=== PATIENT | female | born 1995 | race Caucasian/White ===

== ENCOUNTER 2016-11-24 13:44 | Emergency (ER) | payer MEDICAID, OTHER ==
[~2016-11-24] VITALS: Ht 154.9 cm; Wt 54.4 kg
[~2016-11-24 13:44] MED LIST: PRENATAL VITAMI1 T10 PO; TYLENOL ES500 MG PO
[2016-11-24 13:54] VITALS: BP 134/84
--- NOTE | 2016-11-24 14:05 | NUR ---
PATIENT PRESENTS TO ED WITH C/O SHOULDER, NECK AND BACK PAIN X 3 MONTHS, PT. STATES ITS WORSE WHEN WALKING AND BREATHING DEEP; DENIES N/V/D; SKIN IS PINK/WARM/DRY; AAOX4 WITH EVEN AND STEADY GAIT; LUNGS CLEAR BL; HR EVEN AND REGULAR; PT DENIES ANY FEVER, CP, SOB, OR COUGH AT THIS TIME; PATIENT STATES PAIN OF 7/10 AT THIS TIME; VSS; PATIENT POSITIONED FOR COMFORT; HOB ELEVATED; BEDRAILS UP X2; BED DOWN. ER MD MADE AWARE OF PT STATUS.
[2016-11-24] MEDS ORDERED: KETOROLAC 60 MG/2 ML VIAL IM ONE (14:10)
[2016-11-24] MEDS ORDERED: LORazepam 1 MG TAB PO ONE (14:10)
--- NOTE | 2016-11-24 14:15 | NUR ---
AAO PT TAKEN TO CT VIA WHEEL CHAIR BY RECOVERY COLLECTOR
--- NOTE | 2016-11-24 14:45 | NUR ---
Patient discharged with v/s stable. Written and verbal after care instructions given and explained. Patient alert, oriented and verbalized understanding of instructions. Ambulatory with steady gait. All questions addressed prior to discharge. ID band removed. Patient advised to follow up with PMD. Rx of FLEXERIL, MOTRIN, TRAMADOL given. Patient educated on indication of medication including possible reaction and side effects. Opportunity to ask questions provided and answered.
[2016-11-24 14:50] VITALS: BP 128/75
== END 2016-11-24 14:45 | disposition home or self-care (01) ==
LOC: MED 13:55
DX: M62.830 Muscle spasm of back (principal); M94.0 Chondrocostal junction syndrome [Tietze]
CPT/HCPCS: 71020; 96372; 99284; J1885

== ENCOUNTER 2017-11-11 11:00 | Inpatient (IN) | payer MEDICAID ==
[~2017-11-11] VITALS: Ht 165.1 cm; Wt 53.5 kg
[~2017-11-11 11:00] MED LIST changes: +ACET-6134 PO; -PRENATAL VITAMI1 T10 PO; -TYLENOL ES500 MG PO
[2017-11-11 11:20] VITALS: BP 119/58
--- NOTE | 2017-11-11 11:23 | NUR ---
Patient ambulated to bed 11. RN evaluating patient at bedside.
--- NOTE | 2017-11-11 11:30 | NUR ---
PATIENT PRESENTS TO ED WITH LOWER ABD PAIN AND URINARY RETENTION SINCE 0800; PT STATES "I FEEL LIKE I HAVE TO GO BUT I CAN'T" HX DENIES; DENIES N/V/D; SKIN IS PINK/WARM/DRY; AAOX4 WITH EVEN AND STEADY GAIT; LUNGS CLEAR BL; HR EVEN AND REGULAR; PT DENIES ANY FEVER, CP, SOB, OR COUGH AT THIS TIME; PATIENT STATES PAIN OF 10/10 AT THIS TIME; VSS; PATIENT POSITIONED FOR COMFORT; HOB ELEVATED; BEDRAILS UP X2; BED DOWN. ER MD MADE AWARE OF PT STATUS.
[2017-11-11] MEDS ORDERED: MORPHINE SULFATE 4 MG/ML SYR IVP ONE (11:35)
[2017-11-11] MEDS ORDERED: ONDANSETRON 4 MG/2 ML VIAL IVP ONE (11:35)
--- NOTE | 2017-11-11 12:10 | NUR ---
STRAIGHT CATH ATTEMPTED X2 BY [facility] INSTRUCTOR/STUDENTS; UNABLE TO COLLECT URINE, DR AREVALO NOTIFIED
[2017-11-11 12:43] LABS: BASOPHILS # (AUTO) 0.1 K/uL (0.00-0.22); EOSINOPHILS % (AUTO) 8.2 % (0.0-4.0); HEMATOCRIT 40.5 % (36-48); HEMOGLOBIN 13.4 g/dL (12.0-16.0); LYMPHOCYTES # (AUTO) 1.3 K/uL (2.5-16.5); LYMPHOCYTES % (AUTO) 11.2 % (20.5-51.1); MEAN CORPUSCULAR HEMOGLOBIN 26 pg (27-31); MEAN CORPUSCULAR HGB CONC 33 g/dL (33-37); MEAN CORPUSCULAR VOLUME 78 fL (80-94); MONOCYTES # (AUTO) 0.9 K/uL (0.8-1.0); MONOCYTES % (AUTO) 7.2 % (1.7-9.3); NEUTROPHILS # (AUTO) 8.7 K/uL (1.8-7.7); NEUTROPHILS % (AUTO) 72.4 % (42.2-75.2); PLATELET COUNT (AUTO) 139 K/uL (140-450); RED CELL DISTRIBUTION WIDTH 16.8 % (11.6-13.7)
[2017-11-11] MEDS ORDERED: NACL 0.9% 1,000 ML IV ONE (12:55)
[2017-11-11 13:00] LABS: ANION GAP 15.7 (8-16); CREATININE 0.8 mg/dL (0.6-1.3); POTASSIUM 3.7 mmol/L (3.5-5.1)
[2017-11-11 13:09] LABS: TOTAL BILIRUBIN 0.6 mg/dL (0.0-1.0)
--- NOTE | 2017-11-11 13:29 | NUR ---
PT TAKEN TO CT
--- NOTE | 2017-11-11 13:30 | NUR ---
PT TAKEN OFF THE UNIT VIA GURNEY FOR CT SCAN BY SOLE FILLER GABE
--- NOTE | 2017-11-11 14:06 | NUR ---
PT RETURNED FROM CT
--- NOTE | 2017-11-11 14:15 | NUR ---
PT AMBULATES TO THE RESTROOM FOR URINE SAMPLE SEND TO THE LAB
[2017-11-11 15:11] LABS: PROTHROMBIN TIME 11.1 secs (10.8-13.4)
[2017-11-11 15:33] LABS: APPEARANCE,URINE SL CLOUDY (CLEAR); BILIRUBIN,URINE NEGATIVE (NEGATIVE); BLOOD, URINE 3+ (NEGATIVE); COLOR,URINE YELLOW (YELLOW); LEUKOCYTE ESTERASE ,URINE 3+ (NEGATIVE); NITRITE, URINE NEGATIVE (NEGATIVE); UGLUCOSE NEGATIVE (NEGATIVE)
[2017-11-11] MEDS ORDERED: LORazepam 0.5 MG TAB PO PRN (15:35)
[2017-11-11 15:39] LABS: RBC,URINE 20-50 /HPF (0-5); WBC,URINE 60-80 /HPF (0-5)
[2017-11-11] MEDS ORDERED: cefTRIAXone 1,000 MG VIAL ONE (15:46)
[2017-11-11] MEDS ORDERED: MORPHINE SULFATE 2 MG/ML SYR IVP PRN (15:50)
[2017-11-11] MEDS ORDERED: ONDANSETRON 4 MG/2 ML VIAL IM/IVP PRN (15:50)
[2017-11-11] MEDS ORDERED: DOCUSATE SODIUM 100 MG GELCAP PO PRN (15:50)
[2017-11-11] MEDS ORDERED: ACETAMINOPHEN 325 MG TAB PO PRN (15:50)
[2017-11-11 16:00] VITALS: BP 106/59
--- NOTE | 2017-11-11 16:28 | NUR ---
Patient will be admitted to care of DR ESPOSITO. Admited to M/S. Will go to room 104A. Belongings list completed. Report to AUTUMN WALKER.
--- NOTE | 2017-11-11 16:30 | NUR ---
PT ADMITTED TO UNIT. ARRIVED VIA GURNEY ACCOMPANIED BY LINDA LEYVA AND CARLOS. BEDSIDE REPORT GIVEN BY RN. PT AMBULATED TO BED WITH STEADY GAIT. PT IS AAOX4. INTRODUCED SELF AND UPDATED BOARD. IV TO L AC 22G. SITE INTACT. SKIN WARM AND DRY. NO COUGH. LUNG SOUND CLEAR. VS: BP 106/59, HR 83, RR 18, O2 SAT 100% ON RA. PT STATED PAIN 2/10 ON PELVIC AREA. PAIN IS TOLERABLE AND REFUSES PAIN MEDICATION NOW. MRSA SWAB DONE, APPLIED BROWN SOCKS. BED IN LOW POSITION, CALL LIGHT WITHIN REACH. WILL CONTINUE TO MONITOR.
[2017-11-11] MEDS: NACL 0.9% 1,000 ML IV SCH (16:59)
[2017-11-11 17:09] LABS: BARBITURATE, URINE NEG. ng/ml (NEG <=200); BENZODIAZEPINE, URINE NEG. ng/mL (NEG <=200); CANNABINOID, URINE NEG. ng/mL (NEG <=50); COCAINE, URINE NEG. ng/mL (NEG <=300); OPIATE, URINE POS. ng/mL (NEG <=2000); PHENCYCLIDINE SCREEN,URINE NEG. ng/mL (NEG <=25)
[2017-11-11 17:17] LABS: CHOL/HDL RATIO 1.7 (1-4.5); FREE T4 (FREE THYROXINE) 1.14 ng/dL (0.76-1.46); PHOSPHORUS 3.4 mg/dL (2.5-4.9); THYROID STIMULATING HORMONE 0.89 uIU/mL (0.34-3.74)
[2017-11-11 17:24] LABS: ANION GAP 17.7 (8-16); CARBON DIOXIDE 23.1 mmol/L (21-32); CREATININE 0.8 mg/dL (0.6-1.3); POTASSIUM 3.8 mmol/L (3.5-5.1)
[2017-11-11] MEDS: HYDROcodone/APAP 7.5/325 MG 1 TAB PO PRN ×2 (17:36→22:30)
--- NOTE | 2017-11-11 17:36 | NUR ---
PT GOT UP TO USE BATHROOM WITH STEADY GAIT. PT STATED SHE HAD PAIN 5/10 IN HER PELVIC AREA. ADMINISTERED NORCO PO FOR PAIN. PT TOLERATED WELL. NO SIGNS OF DISTRESS. US TECH IN ROOM. PT HAS MALE VISITOR IN ROOM. CALL LIGHT WITHIN REACH. WILL CONTINUE TO MONITOR.
--- NOTE | 2017-11-11 19:16 | NUR ---
ENDORSED PT TO STRICKLER ATTENDANT NURSE ZAK AT BEDSIDE FOR CONTINUITY OF CARE. PT'S MALE FRIEND AT BEDSIDE. PT IN STABLE CONDITION.
--- NOTE | 2017-11-11 19:20 | NUR ---
PATIENT IS CURRENTLY RESTING IN BED QUIETLY IVF INFUSING WELL IV SITE PATENT. DENIES PAIN AND DISCOMFORT AT THIS TIME COMPLAINS OF DISCOMFORT ONLY WHEN URINATING AND PATIENT STATES,"IM URINATING FREQUENTLY AND IT LOOKS A LITTLE BLOODY." PATIENT ENCOURAGED TO CONTINUE TO DRINK PLENTY OF FLUIDS. PATIENT VERBALIZES UNDERSTANDING.FAMILY AT BEDSIDE WITH THE PATIENT.
--- NOTE | 2017-11-11 19:30 | NUR ---
Patient's Plan of Care was discussed and reviewed with KOSHER DIETARY SERVICE MANAGER: ZAK FAIR
[2017-11-11 20:00] VITALS: BP 108/61
[2017-11-11] MEDS: DOXYCYCLINE 100 MG CAP PO SCH (20:38)
--- NOTE | 2017-11-11 20:38 | NUR ---
EDUCATION GIVEN ON HER SCHEDULED MEDS TONIGHT PATIENT VERBALIZES UNDERSTANDING.WILL CONTINUE TO MONITOR.
--- NOTE | 2017-11-11 21:59 | NUR ---
PATIENT IS CURRENTLY RESTING IN BED SLEEPING.IVF INFUSING WELL IV SITE PATENT. CALL LIGHT WITHIN REACH.
--- NOTE | 2017-11-11 22:30 | NUR ---
PATIENT COMPLAINS OF ABDOMINAL PAIN 6/10 MODERATE PAIN PATIENT WAS MEDICATED WITH NORCO ORDERED.WILL REASSESS PAIN.
--- NOTE | 2017-11-11 23:33 | NUR ---
PATIENT IS CURRENTLY RESTING IN BED PAIN IS 0/10. MRSA OF THE NARES COLLECTED AND WILL BE SEND TO THE LAB. AND I ALSO GAVE THE PATIENT SOME CRANBERRY JUICE.
--- NOTE | 2017-11-11 23:46 | NUR ---
ASSISTED TO THE BATHROOM AND BACK TO BED.
--- NOTE | 2017-11-12 01:35 | NUR ---
PATIENT SLEEPING COMFORTABLY IN BED.NO SCD'S WERE APPLIED PATIENT IS AMBULATORY.
--- NOTE | 2017-11-12 03:00 | NUR ---
PATIENT SLEEPING WELL IN BED.CALL LIGHT WITHIN REACH.
[2017-11-12 04:00] VITALS: BP 101/52
--- NOTE | 2017-11-12 04:54 | NUR ---
PATIENT CURRENTLY STABLE RESTING IN BED WILL CONTINUE TO MONITOR.CALL LIGHT WITHIN REACH.
[2017-11-12 06:12] LABS: BASOPHILS # (AUTO) 0.2 K/uL (0.00-0.22); BASOPHILS % (AUTO) 1.5 % (0.0-2.0); EOSINOPHILS # (AUTO) 1.4 K/uL (0-0.4); EOSINOPHILS % (AUTO) 12.6 % (0.0-4.0); HEMATOCRIT 37.6 % (36-48); HEMOGLOBIN 12.6 g/dL (12.0-16.0); LYMPHOCYTES # (AUTO) 2.2 K/uL (2.5-16.5); LYMPHOCYTES % (AUTO) 19.9 % (20.5-51.1); MEAN CORPUSCULAR HEMOGLOBIN 26 pg (27-31); MEAN CORPUSCULAR HGB CONC 33 g/dL (33-37); MEAN CORPUSCULAR VOLUME 78 fL (80-94); MONOCYTES % (AUTO) 8.8 % (1.7-9.3); NEUTROPHILS # (AUTO) 6.2 K/uL (1.8-7.7); NEUTROPHILS % (AUTO) 57.2 % (42.2-75.2); PLATELET COUNT (AUTO) 145 K/uL (140-450); RED CELL DISTRIBUTION WIDTH 16.6 % (11.6-13.7)
[2017-11-12 06:50] LABS: ANION GAP 11.5 (8-16); CARBON DIOXIDE 27.3 mmol/L (21-32); CREATININE 0.8 mg/dL (0.6-1.3); POTASSIUM 3.8 mmol/L (3.5-5.1)
[2017-11-12] MEDS: HYDROcodone/APAP 7.5/325 MG 1 TAB PO PRN (06:55)
--- NOTE | 2017-11-12 07:00 | NUR ---
PATIENT AWAKE COMPLAINS OF MODERATE PAIN TO ABD WAS MEDICATED WITH NORCO ORDERED WILL CONTINUE TO MONITOR.
[2017-11-12 07:04] LABS: PHOSPHORUS 4.8 mg/dL (2.5-4.9)
--- NOTE | 2017-11-12 07:10 | NUR ---
ENDORSEMENT RECEIVED FROM CIGARETTE INSPECTOR NURSE. PATIENT WAS SLEEPING, EASILY AROUSABLE BY NAME. RESPIRATION EVEN, UNLABOR. SKIN DRY AND WARM. IV PATENT AND INTACT. NO DISTRESS NOTED AT THIS TIME. PLAN OF CARE WAS DISCUSSED WITH PATIENT. CALL LIGHT WITHIN REACH
--- NOTE | 2017-11-12 07:33 | NUR ---
PATIENT STABLE REPORT ENDORSED TO AUTUMN HOFFMAN.
[2017-11-12 08:00] VITALS: BP 97/55
--- NOTE | 2017-11-12 08:51 | NUR ---
PATIENT HAS BEEN SCREENED AND CATEGORIZED LOW NUTRITION RISK. PATIENT WILL BE SEEN WITHIN 7 DAYS OF ADMISSION. 11/17/[address]
[2017-11-12] MEDS: LACTOBACILLUS RHAMNOSUS GG 1 EACH CAP PO SCH (09:15)
[2017-11-12] MEDS: NACL 0.9% 1,000 ML IV SCH (09:15)
[2017-11-12] MEDS: DOCUSATE SODIUM 100 MG GELCAP PO SCH (09:16)
[2017-11-12] MEDS: DOXYCYCLINE 100 MG CAP PO SCH ×2 (09:16→21:09)
--- NOTE | 2017-11-12 10:15 | NUR ---
PATIENT IS AWAKE, ALERT. RESPIRATION EVEN, UNLABOR ON ROOM AIR. DENIED PAIN AT THIS TIME. NO DISTRESS NOTED. ICE CHIP WAS GIVEN. CALL LIGHT WITHIN REACH
[2017-11-12] MEDS ORDERED: KETOROLAC 30 MG/ML VIAL IM PRN (11:25)
--- NOTE | 2017-11-12 14:00 | NUR ---
PATIENT HAD EMESIS X1, SMALL AMOUNT. PAIN MEDICATION WAS GIVEN PER ORDER.
[2017-11-12 16:00] VITALS: BP 99/43
--- NOTE | 2017-11-12 16:11 | NUR ---
PATIENT IS AWAKE, ALERT. RESPIRATION EVEN, UNLABOR ON ROOM AIR. DENIED N/V, PAIN AT THIS TIME. CALL LIGHT WITHIN REACH
--- NOTE | 2017-11-12 18:14 | NUR ---
PATIENT IS AWAKE, ALERT. RESPIRATION EVEN, UNLABOR ON ROOM AIR. IV PATENT AND INTACT. COMPLAINED OF HEADACHE UPON CHANGING POSITION. PATIENT WAS ENCOURAGED TO DRINK MORE WATER, AND CHANGE POSITION SLOWLY. CALL LIGHT WITHIN REACH
--- NOTE | 2017-11-12 19:13 | NUR ---
ENDORSEMENT GIVEN TO THE [place]OWNFIELD PROGRAM COORDINATOR NURSE. PATIENT IS STABLE AT THIS TIME.
--- NOTE | 2017-11-12 19:14 | NUR ---
RECD. RESTING IN BED, AWAKE, A/OX4. RESPIRATION EVEN AND UNLABORED. IV OF NS AT 60 ML/HR INFUSING, RIGHT AC G22. CONVERSING WITH VISITORS AT THE BEDSIDE. PLAN OF CARE FOR THE SHIFT DISCUSSED. ENCOURAGED TO DRINK MORE WATER AND JUICES, CRANBERRY JUICES GIVEN. VERBALIZED UNDERSTANDING. DENIES PAIN 0/10.
--- NOTE | 2017-11-12 19:53 | NUR ---
Patient's Plan of Care was discussed and reviewed with HANDCREW FOREMAN: RONALD SAUCEDA
--- NOTE | 2017-11-12 21:09 | NUR ---
WATCHING TV. PO ANTIBIOTIC FOR THE NIGHT GIVEN.
[2017-11-13] VITALS: BP 107/53
--- NOTE | 2017-11-13 | NUR ---
SLEEPING COMFORTABLY IN BED.
[2017-11-13] MEDS: NACL 0.9% 1,000 ML IV SCH ×2 (01:06→02:51)
--- NOTE | 2017-11-13 04:00 | NUR ---
STILL SLEEPING COMFORTABLY.
--- NOTE | 2017-11-13 06:00 | NUR ---
DR. Javan WILLIAM CAME AND CHECKED PATIENT, WILL FOLLOW UP WITH ANY NEW ORDER.
--- NOTE | 2017-11-13 06:13 | NUR ---
DR. WILLIAM TOLD PATIENT WITH SENEGALESE RESIDENT INTERPRETING THAT PATIENT CAN GO HOME TODAY AND FOLLOW UP WITH HIS CLINIC IF PATIENT WANTS.
[2017-11-13 06:20] LABS: T4 (THYROXINE) 8.4 ug/dL (4.5-12.0)
[2017-11-13 06:29] LABS: BASOPHILS # (AUTO) 0.2 K/uL (0.00-0.22); BASOPHILS % (AUTO) 1.8 % (0.0-2.0); EOSINOPHILS # (AUTO) 1.3 K/uL (0-0.4); EOSINOPHILS % (AUTO) 14.4 % (0.0-4.0); HEMATOCRIT 35.9 % (36-48); HEMOGLOBIN 12.1 g/dL (12.0-16.0); LYMPHOCYTES # (AUTO) 2.1 K/uL (2.5-16.5); MEAN CORPUSCULAR HEMOGLOBIN 26 pg (27-31); MEAN CORPUSCULAR HGB CONC 34 g/dL (33-37); MEAN CORPUSCULAR VOLUME 78 fL (80-94); MONOCYTES # (AUTO) 0.9 K/uL (0.8-1.0); MONOCYTES % (AUTO) 9.7 % (1.7-9.3); NEUTROPHILS # (AUTO) 4.6 K/uL (1.8-7.7); NEUTROPHILS % (AUTO) 51.1 % (42.2-75.2); PLATELET COUNT (AUTO) 122 K/uL (140-450); RED CELL DISTRIBUTION WIDTH 16.6 % (11.6-13.7); WHITE BLOOD COUNT (AUTO) 9.1 K/uL (4.8-10.8)
--- NOTE | 2017-11-13 06:53 | NUR ---
CONDITION REMAIN STABLE. WILL ENDORSE TO AM NURSE FOR CONTINUITY OF CARE.
--- NOTE | 2017-11-13 07:05 | NUR ---
ENDORSED TO AUTUMN BEST FOR CONTINUITY OF CARE.
--- NOTE | 2017-11-13 07:07 | NUR ---
RECEIVED PATIENT REPORT AT BEDSIDE FROM NIGHT NURSE. PATIENT IS AAOX4 AND SHOWS NO S/S OF ACUTE DISTRESS ON ROOM AIR, STATES 10/10 HEADACHE AND REQUESTED TO HAVE TYLENOL. IV NOTED ON THE LEFT AC WITH IVF'S INFUSING WELL, PATENT AND INTACT. SKIN INTACT. PATIENT WAS EXPLAINED POC FOR TODAY, HOSPITAL ENVIRONMENT AND USE OF CALL LIGHT FOR ASSISTANCE, PATIENT VERBALIZED UNDERSTANDING. ALL NEEDS MET AT THIS TIME, BED IN LOW POSITION WITH CALL LIGHT WITHIN REACH.
[2017-11-13 07:37] VITALS: BP 100/56
[2017-11-13 07:48] LABS: ANION GAP 14.1 (8-16); CREATININE 0.8 mg/dL (0.6-1.3); POTASSIUM 4.1 mmol/L (3.5-5.1)
[2017-11-13 07:55] LABS: MAGNESIUM 1.9 mg/dL (1.8-2.4)
[2017-11-13] MEDS: DOXYCYCLINE 100 MG CAP PO SCH (08:28)
[2017-11-13] MEDS: DOCUSATE SODIUM 100 MG GELCAP PO SCH (08:28)
[2017-11-13] MEDS: LACTOBACILLUS RHAMNOSUS GG 1 EACH CAP PO SCH (08:28)
--- NOTE | 2017-11-13 08:34 | NUR ---
ADMINISTERED SCHEDULED MEDICATIONS, GAVE TYLENOL FOR 1/ HEADACHE. WILL REASSESS HEADACHE IN ON HR. IV ABX INFUSING WELL. ALL NEEDS MET AT THIS TIME.
[2017-11-13 09:07] LABS: CHLAMYDIA TRACHOMATIS AMP DNA Negative (Negative)
[2017-11-13] MEDS ORDERED: LEVO250T71 PO (11:30)
[2017-11-13] MEDS ORDERED: ASCO1CAP75 PO (11:30)
[2017-11-13] MEDS ORDERED: IBUP-2218 PO (11:30)
--- NOTE | 2017-11-13 12:19 | NUR ---
PATIENT HAS BEEN DISCHARGED, ALL DISCHARGE PAPERWORK SIGNED AND GIVEN TO PATIENT. ALL QUESTIONS ANSWERED, PATIENT VERBALIZED UNDERSTANDING OF CONTINUITY OF CARE. ALL BELONGINGS IN PATIENT'S POSSESSION. WRISTBANDS REMOVED, PATIENT PREFERRED TO AMB OFF UNIT, MAITE LEYVA PRESENT AT SIDE. PATIENT LEFT IN STABLE CONDITION.
== END 2017-11-13 12:20 | disposition home or self-care (01) | DRG 463 ==
LOC: MED 11:00 → MTU 15:54
PROVIDERS: ADMIT Student in an Organized Health Care Education/Training Program; ATTEND Student in an Organized Health Care Education/Training Program
DX: N39.0 Urinary tract infection, site not specified (principal); N64.4 Mastodynia; N73.9 Female pelvic inflammatory disease, unspecified; N83.209 Unspecified ovarian cyst, unspecified side
CPT/HCPCS: 36415; 71045; 76641; 76770; 76830; 80048; 80053; 80305; 81001; 82150; 83036; 83605; 83690; 83735; 84100; 84436; 84439; 84443; 84479; 84702; 84703; 85025; 85610; 85730; 87040; 87081; 87086; 87210; 87491; 93005; 93325; 96361; 96365; 96375; 99285; C1758; J0696; J1885; J2270; J2405; J7030; J7060; Q0092

== ENCOUNTER 2018-05-19 16:26 | Emergency (ER) | payer MEDICAID ==
[~2018-05-19] VITALS: Ht 162.6 cm; Wt 55.3 kg
[~2018-05-19 16:26] MED LIST changes: +ASCO1CAP75 PO; +IBUP-2218 PO; +LEVO250T71 PO
--- NOTE | 2018-05-19 16:41 | NUR ---
PT AMBULATES TO BED 7
[2018-05-19 16:50] VITALS: BP 106/78
--- NOTE | 2018-05-19 16:50 | NUR ---
PATIENT PRESENTS TO ED WITH COMPLAINTS OF SEVERE MIGRAINE HEADACHE X 1 DAY. SKIN IS PINK/WARM/DRY; AAOX4 WITH EVEN AND STEADY GAIT; LUNGS CLEAR BL; HR EVEN AND REGULAR; PT DENIES ANY FEVER, CP, SOB, OR COUGH AT THIS TIME; PATIENT STATES PAIN OF 10/10 AT THIS TIME; VSS; PATIENT POSITIONED FOR COMFORT; HOB ELEVATED; BEDRAILS UP X1; BED DOWN. ER MD MADE AWARE OF PT STATUS.
--- NOTE | 2018-05-19 17:05 | NUR ---
DR AVERY EVALUATING PT AT BEDSIDE
[2018-05-19] MEDS ORDERED: METOCLOPRAMIDE 10 MG/2 ML INJ VIAL IVP ONE (17:15)
[2018-05-19] MEDS ORDERED: MORPHINE SULFATE 2 MG/ML SYR IVP ONE (17:15)
[2018-05-19] MEDS ORDERED: KETOROLAC 30 MG/ML VIAL IVP ONE (17:15)
[2018-05-19] MEDS ORDERED: ONDANSETRON 4 MG/2 ML VIAL IVP ONE (17:15)
[2018-05-19] MEDS ORDERED: diphenhydrAMINE 50 MG/ML VIAL IVP ONE (17:15)
[2018-05-19 17:35] LABS: BASOPHILS % (AUTO) 0.4 % (0.0-2.0); EOSINOPHILS # (AUTO) 0.9 K/uL (0-0.4); EOSINOPHILS % (AUTO) 8.8 % (0.0-4.0); HEMATOCRIT 39.3 % (36-48); HEMOGLOBIN 12.8 g/dL (12.0-16.0); LYMPHOCYTES # (AUTO) 2.1 K/uL (2.5-16.5); LYMPHOCYTES % (AUTO) 19.1 % (20.5-51.1); MEAN CORPUSCULAR HEMOGLOBIN 24 pg (27-31); MEAN CORPUSCULAR HGB CONC 33 g/dL (33-37); MEAN CORPUSCULAR VOLUME 72.5 fL (80-94); MONOCYTES # (AUTO) 0.6 K/uL (0.8-1.0); MONOCYTES % (AUTO) 5.8 % (1.7-9.3); NEUTROPHILS # (AUTO) 7.1 K/uL (1.8-7.7); NEUTROPHILS % (AUTO) 65.9 % (42.2-75.2); PLATELET COUNT (AUTO) 174 K/uL (140-450); RED BLOOD CELL COUNT(AUTO) 5.43 MIL/uL (4.20-5.40); RED CELL DISTRIBUTION WIDTH 16.8 % (11.6-13.7); WHITE BLOOD COUNT (AUTO) 10.8 K/uL (4.8-10.8)
[2018-05-19 17:51] LABS: ANION GAP 11.8 (8-16); CARBON DIOXIDE 26.8 mmol/L (21-32); CREATININE 0.7 mg/dL (0.6-1.3); POTASSIUM 3.6 mmol/L (3.5-5.1)
[2018-05-19 17:59] LABS: ALBUMIN 4.4 g/dL (3.4-5.0); TOTAL BILIRUBIN 0.4 mg/dL (0.0-1.0)
--- NOTE | 2018-05-19 18:16 | NUR ---
PATIENT TAKEN TO CT VIA KIMBERLY
[2018-05-19 19:15] VITALS: BP 125/71
--- NOTE | 2018-05-19 19:15 | NUR ---
Patient discharged with v/s stable. Written and verbal after care instructions given and explained. Patient alert, oriented and verbalized understanding of instructions. Ambulatory with steady gait. All questions addressed prior to discharge. ID band removed. Patient advised to follow up with PMD. Rx of FIORICET 50MG-325MG AND 40MG given. Patient educated on indication of medication including possible reaction and side effects. Opportunity to ask questions provided and answered.
== END 2018-05-19 19:20 | disposition home or self-care (01) ==
LOC: MED 16:26
DX: G44.009 Cluster headache syndrome, unspecified, not intractable (principal); Z79.1 Long term (current) use of non-steroidal anti-inflammatories (NSAID)
CPT/HCPCS: 36415; 70450; 80053; 85025; 96374; 96375; 99285; J1200; J1885; J2270; J2405; J2765

== ENCOUNTER 2018-06-27 16:05 | Emergency (ER) | payer MEDICAID ==
[~2018-06-27] VITALS: Ht 167.6 cm; Wt 54.9 kg
[2018-06-27 16:20] VITALS: BP 116/48
--- NOTE | 2018-06-27 16:20 | NUR ---
pt ambulated to rm 6 with steady gait
--- NOTE | 2018-06-27 16:30 | NUR ---
23f bib self with c/o 10/10 "sharp" suprapubic and bl lower back pain with vaginal dc brownish white in color. Patient also sts vaginal pruritus and vaginal "pressure" x 1 wk, progressively getting worse. Patient denies vaginal bleeding or injury/trauma. Pt sts she is 1 month has not seen ob yet. Patient denies any n/v/d or fevers. Patient is aox4 to person, place, situation, and time. RR are even and unlabored. Abd soft and non tender. Patient changed into gown. Patient positioned to comfort. Awaiting er md lacy. ROSE. Will continue to monitor.
--- NOTE | 2018-06-27 16:50 | NUR ---
lab by bedside
[2018-06-27 16:57] LABS: BASOPHILS # (AUTO) 0.1 K/uL (0.00-0.22); BASOPHILS % (AUTO) 0.9 % (0.0-2.0); EOSINOPHILS # (AUTO) 0.4 K/uL (0-0.4); HEMATOCRIT 35.9 % (36-48); HEMOGLOBIN 11.6 g/dL (12.0-16.0); LYMPHOCYTES # (AUTO) 1.9 K/uL (2.5-16.5); LYMPHOCYTES % (AUTO) 24.7 % (20.5-51.1); MEAN CORPUSCULAR HEMOGLOBIN 23 pg (27-31); MEAN CORPUSCULAR HGB CONC 32 g/dL (33-37); MEAN CORPUSCULAR VOLUME 71.5 fL (80-94); MONOCYTES # (AUTO) 0.6 K/uL (0.8-1.0); MONOCYTES % (AUTO) 7.6 % (1.7-9.3); NEUTROPHILS # (AUTO) 4.6 K/uL (1.8-7.7); NEUTROPHILS % (AUTO) 60.8 % (42.2-75.2); PLATELET COUNT (AUTO) 167 K/uL (140-450); RED BLOOD CELL COUNT(AUTO) 5.02 MIL/uL (4.20-5.40); RED CELL DISTRIBUTION WIDTH 17.1 % (11.6-13.7); WHITE BLOOD COUNT (AUTO) 7.5 K/uL (4.8-10.8)
[2018-06-27 16:58] LABS: APPEARANCE,URINE CLEAR (CLEAR); BILIRUBIN,URINE NEGATIVE (NEGATIVE); BLOOD, URINE NEGATIVE (NEGATIVE); COLOR,URINE YELLOW (YELLOW); LEUKOCYTE ESTERASE ,URINE NEGATIVE (NEGATIVE); NITRITE, URINE NEGATIVE (NEGATIVE); PH,URINE 5.5 (5.0-9.0); UGLUCOSE NEGATIVE (NEGATIVE)
--- NOTE | 2018-06-27 18:16 | NUR ---
er md oconnor by bedside updating patient on plan of care. patient verbalized understanding. vss. nad. will continue to monitor.
[2018-06-27 19:01] VITALS: BP 122/70
--- NOTE | 2018-06-27 19:01 | NUR ---
Patient discharged with v/s stable. Written and verbal after care instructions given and explained. Patient verbalized understanding. Ambulatory with to car. All questions addressed prior to discharge. Advised to follow up with PMD.
== END 2018-06-27 19:01 | disposition home or self-care (01) ==
LOC: MED 16:05
DX: O26.891 Other specified pregnancy related conditions, first trimester (principal); R10.30 Lower abdominal pain, unspecified; R50.9 Fever, unspecified; Z79.899 Other long term (current) drug therapy; Z3A.01 Less than 8 weeks gestation of pregnancy
CPT/HCPCS: 36415; 76817; 81003; 81025; 84702; 85025; 99285; Q0092

== ENCOUNTER 2019-05-27 17:23 | Emergency (ER) | payer MEDICAID ==
[~2019-05-27] VITALS: Ht 162.6 cm; Wt 61.2 kg
[2019-05-27 17:38] VITALS: BP 154/84
--- NOTE | 2019-05-27 17:40 | NUR ---
C/O L SHOULDER PAIN, COLLAR BONE PAIN, AND UPPER BACK PAIN X LAST NIGHT. PAIN 5/10. DENIES TRUAMA/INJURY. PATIENT STATES PAIN STARTED WHILE SLEEPING SUDDENLY AND IS AGGRAVATED BY MOVEMENT. DENIES FEVER, CHILLS, SOB, TINGLING, OR NUMBNESS. SITE IS RED FROM PATIENT RUBBING. AA0X4. BED IS DOWN, LOCKED, BED RAIL X 1, ERMD TO SEE PT. PMH- DENIES
[2019-05-27] MEDS ORDERED: KETOROLAC 30 MG/ML VIAL IM ONE (17:50)
--- NOTE | 2019-05-27 18:21 | NUR ---
TORADOL IM INJECTION BY STUDENT AND INSTRUCTOR
--- NOTE | 2019-05-27 18:21 | NUR ---
URINE COLLECTED- TEST NEGATIVE
[2019-05-27 18:52] VITALS: BP 129/75
--- NOTE | 2019-05-27 18:52 | NUR ---
Patient discharged with v/s stable. Written and verbal after care instructions given and explained. Patient alert, oriented and verbalized understanding of instructions. Ambulatory with steady gait. All questions addressed prior to discharge. ID band removed. Patient advised to follow up with PMD. Rx of prednisone/naproxen given. Patient educated on indication of medication including possible reaction and side effects. Opportunity to ask questions provided and answered.
== END 2019-05-27 18:25 | disposition home or self-care (01) ==
LOC: MED 17:23
DX: M94.0 Chondrocostal junction syndrome [Tietze] (principal); Z79.1 Long term (current) use of non-steroidal anti-inflammatories (NSAID); Z79.2 Long term (current) use of antibiotics
CPT/HCPCS: 71045; 73000; 81025; 96372; 99283; J1885

== ENCOUNTER 2024-07-09 16:47 | Emergency (ER) | payer MEDICAID, OTHER ==
[~2024-07-09] VITALS: Ht 162.6 cm; Wt 72.3 kg
[~2024-07-09 16:47] MED LIST changes: -ACET-6134 PO; +ACET500T99 PO; -LEVO250T71 PO; +LEVO250T89 PO
[2024-07-09 17:15] VITALS: BP 149/96; PULSE 100; RESP 20; TEMP 97.8; O2SAT 99
[2024-07-09] MEDS ORDERED: KETOROLAC 30 MG/ML VIAL IVP ONE (18:10)
[2024-07-09] MEDS: KETOROLAC 30 MG/ML VIAL IM ONE (18:35)
[2024-07-09] MEDS ORDERED: CAPS1ADH5 TP (19:57)
[2024-07-09] MEDS ORDERED: METH-1681 PO (19:57)
[2024-07-09] MEDS ORDERED: NAPR-1704 PO (19:57)
== END 2024-07-09 20:05 | disposition home or self-care (01) ==
LOC: MED 16:47
DX: S16.1XXA Strain of muscle, fascia and tendon at neck level, initial encounter (principal); M25.512 Pain in left shoulder; Z79.899 Other long term (current) drug therapy; V89.2XXA Person injured in unspecified motor-vehicle accident, traffic, initial encounter; Y93.89 Activity, other specified; Y92.89 Other specified places as the place of occurrence of the external cause; Y99.8 Other external cause status
CPT/HCPCS: 72050; 96372; 99283; J1885